=== PATIENT | female | born 1930 | race African-American/Black ===

== ENCOUNTER → 2020-03-17 | Outpatient (CLI) | payer MEDICARE ==
[2005-11-24 09:40] VITALS: TEMP 97.1
[~2020-03-17] MED LIST: CALCIUM 1200 601 SGL PO; COSOPT EYE DROPS5 ML OP; SYNTHROID0.05 MG/TA PO; VASOTEC 5MG5 MG/TAB PO; VITAMIN D2400 IU PO; XALATAN EYE DROPS OU
== END ==
LOC: ZCOL.LAB 16:15
DX: Z01.812 Encounter for preprocedural laboratory examination (principal); Z20.828 Contact with and (suspected) exposure to other viral communicable diseases